=== PATIENT | male | born 1995 | race Caucasian/White ===

== ENCOUNTER 2017-07-15 18:25 | Emergency (ER) | payer BC ==
[2017-07-15 19:35] VITALS: BP 118/58
[2017-07-15] MEDS ORDERED: Acetaminophen TAB* 325 MG PO ONE (21:13)
[2017-07-15] MEDS ORDERED: NS 0.9% 1000 ML* 1,000 ML IV ONE (21:26)
--- NOTE | 2017-07-15 22:05 | UC ---
FLU HPI - HPI Summary HPI Summary: Pt c/o gradual onset of muscle weakness, soreness, fatigue, chills, CALLAHAN, diarrhea and fever/chills X 2 days. Pt began practicing lacrosse at [facility] 3 days ago. Pt reports taking OTC "sports vitamin" 1 week ago. - History of Current Complaint Chief Complaint: UCGeneralIllness Stated Complaint: NAUSEA CHILLS DIZZY ACHY Time Seen by Provider: 07/15/17 21:11 Hx Obtained From: Patient Onset/Duration: Gradual Onset, Lasting Days, Still Present, Worse Since - onset Severity Currently: Moderate Severity Initially: Mild Pain Intensity: 4 Associated Signs & Symptoms: Positive: Fever, Myalgia, Headache, Diarrhea Related Hx: Possible Flu/Infectious Exposure - Allergy/Home Medications Allergies/Adverse Reactions: Allergies Allergy/AdvReac Type Severity Reaction Status Date / Time No Known Allergies Allergy Verified 07/15/17 19:29 Home Medications: Home Medications Amphetamine-Dextroamphetamine [Adderall 15 mg] 1 tab PO BID 07/15/17 [History Confirmed 07/15/17] PMH/Surg Hx/FS Hx/Imm Hx Previously Healthy: Yes - Surgical History Surgical History: Yes Surgery Procedure, Year, and Place: INGUINAL HERNIA REPAIR - Family History Known Family History: Positive: Cardiac Disease - Social History Occupation: Student Lives: Dormitory/Roommates Alcohol Use: Rare Substance Use Type: None Smoking Status (MU): Never Smoked Tobacco Have You Smoked in the Last Year: No - Immunization History Vaccination Up to Date: Yes Review of Systems Constitutional: Fever, Chills, Fatigue Skin: Negative Eyes: Negative ENT: Negative Respiratory: Negative Cardiovascular: Negative Gastrointestinal: Negative Genitourinary: Negative Motor: Negative Neurovascular: Negative Musculoskeletal: Myalgia Neurological: Headache, Weakness Psychological: Negative Is Patient Immunocompromised?: No All Other Systems Reviewed And Are Negative: Yes Physical Exam Triage Information Reviewed: Yes Appearance: Ill-Appearing Vital Signs: Initial Vital Signs Temp 100.7 F 07/15/17 19:31 Pulse 111 07/15/17 19:31 Resp 16 07/15/17 19:31 BP 118/58 07/15/17 19:31 Pulse Ox 100 07/15/17 19:31 Vital Signs Reviewed: Yes Eye Exam: Normal ENT Exam: Normal Dental Exam: Normal Neck exam: Normal Respiratory Exam: Normal Cardiovascular Exam: Normal Abdominal Exam: Normal Abdomen Description: Positive: Nontender Musculoskeletal Exam: Normal Neurological Exam: Normal Psychological Exam: Normal Skin Exam: Normal Flu Course/Dx - Differential Dx/Diagnosis Differential Diagnosis/HQI/PQRI: Influenza, Other - Rhabdomyolisis Provider Diagnoses: Viral syndrome Discharge - Discharge Plan Condition: Stable Disposition: HOME Patient Education Materials: Viral Syndrome (ED) Forms: *Physical Education Release Referrals: Non Staff,Doctor [Primary Care Provider] - If Needed Additional Instructions: Please follow up with your PCP as needed or return clinic. Please discontinue the OTC vitamin you described in todays visit.
== END 2017-07-15 22:32 | disposition home or self-care (01) ==
LOC: UCCORT 18:25
DX: B34.9 Viral infection, unspecified (principal)
CPT/HCPCS: 81003; 87502; 96360; 99202; A9270-GY; G0463

== ENCOUNTER 2017-07-29 18:33 | Emergency (ER) | payer BC ==
[2017-07-29 19:44] VITALS: BP 134/66
[2017-07-29] MEDS ORDERED: Ibuprofen TAB* 400 MG PO ONE (20:12)
[2017-07-29] MEDS ORDERED: Oseltamivir CAP* 75 MG CAP PO ONE (20:12)
--- NOTE | 2017-07-29 20:14 | ED ---
Respiratory - HPI Summary HPI Summary: 21 yr old with fever, chills, cough, runny nose, myalgias. Onset over the past 48 hours. He has had cough productive of sputum. He is a college student with influenza outbreak. - History of Current Complaint Chief Complaint: UCRespiratory Stated Complaint: BODY ACHES, COUGH, SINUS PAIN Time Seen by Provider: 07/29/17 20:04 Pain Intensity: 0 - Allergy/Home Medications Allergies/Adverse Reactions: Allergies Allergy/AdvReac Type Severity Reaction Status Date / Time No Known Allergies Allergy Verified 07/29/17 19:41 PMH/Surg Hx/FS Hx/Imm Hx - Surgical History Surgery Procedure, Year, and Place: INGUINAL HERNIA REPAIR Infectious Disease History: No Infectious Disease History: Denies: Traveled Outside the [place] in Last 30 Days - Family History Known Family History: Positive: Cardiac Disease - Social History Alcohol Use: None Substance Use Type: Reports: None Smoking Status (MU): Never Smoked Tobacco Have You Smoked in the Last Year: No Review of Systems Positive: Fever, Chills Positive: Sore Throat, Nasal Discharge Positive: Cough All Other Systems Reviewed And Are Negative: Yes Physical Exam Triage Information Reviewed: Yes Vital Signs On Initial Exam: Initial Vitals Temp Pulse Resp BP Pulse Ox 101.7 F 115 16 134/66 98 07/29/17 19:41 07/29/17 19:41 07/29/17 19:41 07/29/17 19:41 07/29/17 19:41 Vital Signs Reviewed: Yes Appearance: Positive: Well-Appearing, No Pain Distress Skin: Positive: Warm, Skin Color Reflects Adequate Perfusion Head/Face: Positive: Normal Head/Face Inspection Eyes: Positive: EOMI ENT: Positive: Pharyngeal erythema, Nasal congestion, Nasal drainage, TMs normal Neck: Positive: Supple, Nontender Respiratory/Lung Sounds: Positive: Clear to Auscultation, Breath Sounds Present Cardiovascular: Positive: RRR. Negative: Murmur Abdomen Description: Positive: Nontender Musculoskeletal: Positive: Strength/ROM Intact Neurological: Positive: Sensory/Motor Intact, Alert, Oriented to Person Place, Time, CN Intact II-III Psychiatric: Positive: Normal - [place] Coma Scale Best Eye Response: 4 - Spontaneous Best Motor Response: 6 - Obeys Commands Best Verbal Response: 5 - Oriented Coma Scale Total: 15 Diagnostics - Vital Signs Vital Signs Temp Pulse Resp BP Pulse Ox 07/29/17 19:41 101.7 F 115 16 134/66 98 - Laboratory Lab Results: Lab Results 07/29/17 Range/Units 19:49 Influenza A (Rapid) Positive H (Negative) Influenza B (Rapid) Negative (Negative) Lab Statement: Any lab studies that have been ordered have been reviewed, and results considered in the medical decision making process. Disposition - Course Course Of Treatment: 21 yr old with influenza, dc home on tamiflu - Diagnoses Provider Diagnoses: Influenza Discharge - Discharge Plan Condition: Good Disposition: HOME Prescriptions: Oseltamivir CAP* [Tamiflu CAP*] 75 mg PO BID #10 cap Patient Education Materials: Influenza (ED) Forms: *School Release Referrals: No Primary Care Phys,NOPCP [Primary Care Provider] - [facility] [Outside]
== END 2017-07-29 20:18 | disposition home or self-care (01) ==
LOC: UCCORT 18:33
DX: J11.1 Influenza due to unidentified influenza virus with other respiratory manifestations (principal)
CPT/HCPCS: 87502; 99212; A9270-GY; G0463

== ENCOUNTER 2018-03-23 16:50 | Emergency (ER) | payer BC ==
[2018-03-23] MEDS ORDERED: Ibuprofen TAB* 400 MG PO ONE (18:14)
--- NOTE | 2018-03-23 18:41 | UC ---
Throat Pain/Nasal Gil HPI - HPI Summary HPI Summary: 22 y/o male presents to the urgent care c/o sore throat and CALLAHAN w/ body aches since last night. Pt rook Ibuprofen 400mg PO last night to alleviate symptoms. Pt woke up today around 1500P and has decrease appetite. Pain w/ swallowing is 7 /10 associated w/ fever, CALLAHAN and clear nasal discharge. He has not taken any medication today. Pt denies cough, neck pain, rash, chest pain, abdominal pain, N/V/D. Pt is UTD w/ all vaccines for her age. - History of Current Complaint Chief Complaint: UCGeneralIllness Stated Complaint: SORE THROAT, "FEVERISH" Time Seen by Provider: 03/23/18 18:13 Hx Obtained From: Patient Onset/Duration: Gradual Onset, Lasting Days - 1 day, Worse Since - today Severity: Moderate Pain Intensity: 6 Pain Scale Used: 0-10 Numeric Cough: None Associated Signs & Symptoms: Positive: Dysphagia - Epiglottits Risk Factors Epiglottis Risk Factors: Negative - Allergies/Home Medications Allergies/Adverse Reactions: Allergies Allergy/AdvReac Type Severity Reaction Status Date / Time No Known Allergies Allergy Verified 03/23/18 18:11 Home Medications: Home Medications Dexmethylphenidate HCl [Focalin Xr] 10 mg PO DAILY 03/23/18 [History Confirmed 03/23/18] PMH/Surg Hx/FS Hx/Imm Hx Previously Healthy: Yes - Pt denies PMHX - Surgical History Surgical History: Yes Surgery Procedure, Year, and Place: INGUINAL HERNIA REPAIR - Family History Known Family History: Positive: Cardiac Disease - Social History Occupation: Student Lives: With Family Alcohol Use: Weekly Alcohol Amount: once a week Substance Use Type: None Smoking Status (MU): Never Smoked Tobacco Have You Smoked in the Last Year: No - Immunization History Vaccination Up to Date: Yes Review of Systems Constitutional: Fever Skin: Negative Eyes: Negative ENT: Sore Throat, Nasal Discharge - clear Respiratory: Negative Cardiovascular: Negative Gastrointestinal: Negative Genitourinary: Negative Motor: Negative Neurovascular: Negative Musculoskeletal: Negative Neurological: Negative Psychological: Negative Is Patient Immunocompromised?: No All Other Systems Reviewed And Are Negative: Yes Physical Exam - Summary Physical Exam Summary: VITAL SIGNS: Reviewed. GENERAL: Patient is a well developed and nourished male who is sitting comfortable in the examining table. Patient is not in any acute respiratory distress. HEAD AND FACE: No signs of trauma. No ecchymosis, hematomas or skull depressions. No sinus tenderness. EYES: PERRLA, EOMI x 2, No injected conjunctiva, no nystagmus. No photophobia. EARS: Hearing grossly intact. Ear canals and tympanic membranes are within normal limits. MOUTH: Positive pharynx with erythema, exudates, palatal petechiae. B/L tonsillar enlargement with exudate. Uvula in midline. NECK: Supple, trachea is midline, Positive anterior cervical lymphadenopathy, no JVD, no carotid bruit, no c-spine tenderness, neck with full ROM. No meningeal signs, no Kernig's or brudzinskis signs. CHEST: Symmetric, no tenderness at palpation LUNGS: Clear to auscultation bilaterally. No wheezing or crackles. CVS: Regular rate and rhythm, S1 and S2 present, no murmurs or gallops appreciated. ABDOMEN: Soft, non-tender. No signs of distention. No rebound no guarding, and no masses palpated. Bowel sounds are normal. EXTREMITIES: FROM in all major joints, no edema, no cyanosis or clubbing. NEURO: Alert and oriented x 3. No acute neurological deficits. Speech is normal and follows commands. SKIN: Dry and warm Triage Information Reviewed: Yes Vital Signs: Initial Vital Signs Temp 102 F 03/23/18 18:07 Pulse 111 03/23/18 18:07 Resp 16 03/23/18 18:07 BP 154/59 03/23/18 18:07 Pulse Ox 100 03/23/18 18:07 Throat Pain/Nasal Course/Dx - Course Course Of Treatment: 22 y/o male presents to the urgent care c/o sore throat and CALLAHAN w/ body aches since last night. Pt rook Ibuprofen 400mg PO last night to alleviate symptoms. Pt woke up today around 1500P and has decrease appetite. Pain w/ swallowing is 7/10 associated w/ fever, CALLAHAN and clear nasal discharge. He has not taken any medication today. Pt denies cough, neck pain, rash, chest pain, abdominal pain, N/V/D. Pt is UTD w/ all vaccines for her age. Hx obtained. Pt febrile and pharyngitis on examination. Pt given Ibuprofen PO by the nurse for fever. Pt tolerated well medication and temp decrease to 99.6F.Rapid strep ordered, result: negative. Influenxa A&B: negative. Monospot ordered to r/o mononucleosis. Pt w/ Viral pharyngitis.Pt Rx ibuprofen PO to alleviates symptoms of pain and swelling. Advised on hand washing to avoid spreading. Pt advised to rest, eat well and avoid strenuous exercise. If symptoms do not improve or worsen advised to return to the urgent care or f/u with his PCP for further evaluation and treatment. Pt understood and agreed w/ plan of care. - Differential Dx/Diagnosis Differential Diagnosis/HQI/PQRI: Influenza, Laryngitis, Mononucleosis, Otitis Media, Pharyngitis, Sinusitis, Tonsillitis Provider Diagnoses: 1- Viral pharyngitis. 2- fever Discharge - Sign-Out/Discharge Documenting (check all that apply): Patient Departure - D/c home All imaging exams completed and their final reports reviewed: No Studies - Discharge Plan Condition: Stable Disposition: HOME Prescriptions: Ibuprofen TAB* [Motrin TAB* 800 MG] 800 mg PO Q6H PRN #30 tab PRN Reason: Sore Throat Patient Education Materials: Pharyngitis (ED), Low-Sodium Diet (ED) Forms: *School Release Referrals: [facility] [place] [facility] [Outside] - 2 Days Additional Instructions: 1- Strep was negative, Influenxa A&B were negative. Monospot ordered to r/o mononucleosis you will be notified of results for further management 2-Please take ibuprofen PO q6-8hrs prn as instructed after meals to alleviate pain and swelling. Increase fluid intake, eat well, rest and avoid strenuous exercise 3-If symptoms do not improve or worsen please return to the urgent care or f/u with your PCP in 3 days for further evaluation and treatment. 4-Your BP is elevated today. please decrease salt in your diet, monitor BP and if it continues to be elevated please f/u with your PCP for further management - Billing Disposition and Condition Condition: STABLE Disposition: Home
[2018-03-23 19:19] VITALS: BP 127/62
== END 2018-03-23 19:27 | disposition home or self-care (01) ==
LOC: UCCORT 16:50
DX: J02.8 Acute pharyngitis due to other specified organisms (principal); R50.9 Fever, unspecified
CPT/HCPCS: 36415; 86308; 86664; 86665; 87651; 99212; A9270-GY; G0463

== ENCOUNTER 2018-05-22 14:24 | Emergency (ER) | payer BC ==
[2018-05-22 15:48] VITALS: BP 118/59
--- NOTE | 2018-05-22 16:06 | UC ---
Throat Pain/Nasal Gil HPI - HPI Summary HPI Summary: 22 year old male presents with 3 day history of sore throat and swollen lymph nodes. Denies fever, chills, ear pain, nasal congestion, dysphagia, chest pain, shortness of breath, abdominal pain, nausea or vomiting. - History of Current Complaint Chief Complaint: UCGeneralIllness Stated Complaint: ST Time Seen by Provider: 05/22/18 15:40 Hx Obtained From: Patient Onset/Duration: Gradual Onset, Lasting Days - 3 Severity: Moderate Pain Intensity: 7 Cough: None Associated Signs & Symptoms: Negative: Dysphagia, Drooling, Wheezing, Hoarseness , Sinus Discomfort, Nasal Discharge, Fever, Vomiting - Allergies/Home Medications Allergies/Adverse Reactions: Allergies Allergy/AdvReac Type Severity Reaction Status Date / Time No Known Allergies Allergy Verified 05/22/18 15:48 PMH/Surg Hx/FS Hx/Imm Hx Previously Healthy: Yes Psychological History: Other - ADHD - Surgical History Surgical History: Yes Surgery Procedure, Year, and Place: INGUINAL HERNIA REPAIR - Family History Known Family History: Positive: Cardiac Disease - Social History Occupation: Employed Full-time Lives: With Family Alcohol Use: Weekly Alcohol Amount: once a week Substance Use Type: None Smoking Status (MU): Never Smoked Tobacco Have You Smoked in the Last Year: No - Immunization History Vaccination Up to Date: Yes Review of Systems All Other Systems Reviewed And Are Negative: Yes Constitutional: Negative: Fever, Chills Skin: Negative: Rash Eyes: Negative: Drainage, Eye Redness ENT: Positive: Sore Throat. Negative: Ear Ache, Nasal Discharge, Sinus Congestion Respiratory: Negative: Shortness Of Breath, Cough Cardiovascular: Negative: Palpitations Gastrointestinal: Negative: Abdominal Pain, Vomiting, Nausea Is Patient Immunocompromised?: No Physical Exam - Summary Physical Exam Summary: GENERAL APPEARANCE: Well developed, well nourished, alert and cooperative, and appears to be in no acute distress. EYES: Conjunctiva clear. No discharge. EARS: External auditory canals and tympanic membranes clear, hearing grossly intact. NOSE: No nasal discharge. THROAT: Pharynx erythema. 3+ tonsils with exudate. Uvula midline. Teeth and gingiva in good general condition. NECK: Neck supple, non-tender. Anterior cervical lymphadenopathy present. CARDIAC: Normal S1 and S2. No S3, S4 or murmurs. Rhythm is regular. There is no peripheral edema, cyanosis or pallor. Extremities are warm and well perfused. Capillary refill is less than 2 seconds. LUNGS: Clear to auscultation and percussion without rales, rhonchi, wheezing or diminished breath sounds. ABDOMEN: Positive bowel sounds. Soft, nondistended, nontender. No guarding or rebound. No masses or hepatosplenomegally. SKIN: Skin normal color, texture and turgor with no lesions or eruptions. Triage Information Reviewed: Yes Vital Signs: Initial Vital Signs Temp 97.9 F 05/22/18 15:45 Pulse 62 05/22/18 15:45 Resp 16 05/22/18 15:45 BP 118/59 05/22/18 15:45 Pulse Ox 100 05/22/18 15:45 Vital Signs Reviewed: Yes Diagnostics - Laboratory Diagnostic Studies Completed/Ordered: Rapid strep positive. Throat Pain/Nasal Course/Dx - Course Course Of Treatment: 22 year old male presents with 3 day history of sore throat and swollen lymph nodes. Denies fever, chills, ear pain, nasal congestion , dysphagia, chest pain, shortness of breath, abdominal pain, nausea or vomiting. Exam revealed pharyngeal erythema, 3+ tonsils with exudate, and anterior cervical lymhadenopathy. Rapid strep positive. Will treat with penicillin VK 500 mg 1 tab twice a day for 10 days as well as symptomatic treatment. Warning symptoms reveiwed with patient. Verbalizes understanding and agrees with POC. - Differential Dx/Diagnosis Differential Diagnosis/HQI/PQRI: Mononucleosis, Pharyngitis, Tonsillitis, URI Provider Diagnosis: Streptococcal pharyngitis Discharge - Sign-Out/Discharge Documenting (check all that apply): Patient Departure All imaging exams completed and their final reports reviewed: No Studies - Discharge Plan Condition: Stable Disposition: HOME Prescriptions: Penicillin VK 500 MG TAB(NF) [Penicillin VK 500 mg Tab] 500 mg PO BID #20 tab Patient Education Materials: Strep Throat (ED) Referrals: No Primary Care Phys,NOPCP [Primary Care Provider] - Additional Instructions: Your rapid strep test in the clinic today was positive for strep throat. We will start you on an antibiotic to treat for your infection. Start penicillin VK 500 mg 1 tab twice a day for 10 days. Take with food to avoid upset stomach. Be sure to complete the entire course even if you are feeling better. Drink plenty of fluids to avoid dehydration especially if you are running any fever. Use salt water gargles several times a day. Take over the counter acetaminophen (Tylenol) or ibuprofen (Advil, Motrin) according to directions as needed for pain or fever. You may also use Chloraseptic spray or Cepacol lonzenges according to directions which contain a numbing medication and can provide some temporary relief from your sore throat. Return here or follow up with your primary care provider in 7 days if symptoms persist. Seek immediate medical attention in the emergency room if you have fever greater than 100.5 F despite taking acetaminophen or ibuprofen, are unable to swallow or develop drooling, are unable to open your mouth fully, are unable to eat or drink, have pain that is not relieved with over the counter pain medication, or have any difficulty breathing. - Billing Disposition and Condition Condition: STABLE Disposition: Home - Attestation Statements Provider Attestation: Per institutional requirements, I have reviewed the chart, however, I was not consulted specifically or made aware of this patient by the midlevel provider. I did not personally evaluate, interact with , or disposition this patient.
== END 2018-05-22 16:19 | disposition home or self-care (01) ==
LOC: UCCORT 14:24
DX: J02.0 Streptococcal pharyngitis (principal)
CPT/HCPCS: 87651; 99212; G0463

== ENCOUNTER 2018-08-15 11:35 | Emergency (ER) | payer BC ==
[2018-08-15 12:26] VITALS: BP 119/63
[2018-08-15] MEDS ORDERED: Lidocain 1% EPI 1:100,000 * 30 ML MDV INJ ONE (12:52)
--- NOTE | 2018-08-15 13:50 | UC ---
Laceration HPI - HPI Summary HPI Summary: 22 yo male fell into window about midnight lacerating his right hand and forearm He is right handed tetanus up to date - History Of Current Complaint Chief Complaint: UCLaceration Stated Complaint: LEFT ARM LAC Time Seen by Provider: 08/15/18 12:43 Hx Obtained From: Patient Laceration Location: Hand Mechanism Of Injury: Sharp Trauma Onset/Duration: Sudden Onset Severity: Mild Pain Intensity: 0 Pain Scale Used: 0-10 Numeric Aggravating Factors: Movement Full Body (No Head): 1 - lac 2 - mutiple superficial lacs- none sutured - Allergies/Home Medications Allergies/Adverse Reactions: Allergies Allergy/AdvReac Type Severity Reaction Status Date / Time No Known Allergies Allergy Verified 08/15/18 12:20 PMH/Surg Hx/FS Hx/Imm Hx Previously Healthy: Yes - Surgical History Surgical History: Yes Surgery Procedure, Year, and Place: INGUINAL HERNIA REPAIR - Family History Known Family History: Positive: Cardiac Disease - Social History Alcohol Use: Weekly Alcohol Amount: once a week Substance Use Type: None Smoking Status (MU): Never Smoked Tobacco Have You Smoked in the Last Year: No - Immunization History Most Recent Tetanus Shot: within 5 years Vaccination Up to Date: Yes Review of Systems All Other Systems Reviewed And Are Negative: Yes Constitutional: Positive: Negative Skin: Positive: Negative Eyes: Positive: Negative ENT: Positive: Negative Respiratory: Positive: Negative Cardiovascular: Positive: Negative Gastrointestinal: Positive: Negative Genitourinary: Positive: Negative Motor: Positive: Negative Neurovascular: Positive: Negative Musculoskeletal: Positive: Negative Neurological: Positive: Negative Psychological: Positive: Negative Physical Exam Triage Information Reviewed: Yes Appearance: Well-Appearing, No Pain Distress, Well-Nourished Vital Signs: Initial Vital Signs Temp 97.7 F 08/15/18 12:20 Pulse 83 08/15/18 12:20 Resp 17 08/15/18 12:20 BP 119/63 08/15/18 12:20 Pulse Ox 99 08/15/18 12:20 Vital Signs Reviewed: Yes Eyes: Positive: Conjunctiva Clear ENT: Positive: Hearing grossly normal. Negative: Nasal congestion, Nasal drainage, Trismus, Muffled voice, Hoarse voice Neck: Positive: Supple, Nontender Respiratory: Positive: Lungs clear, Normal breath sounds, No respiratory distress, No accessory muscle use Cardiovascular: Positive: RRR, No Murmur Abdominal Exam: Normal Musculoskeletal: Positive: ROM Intact, No Edema Neurological: Positive: Alert Psychological Exam: Normal Skin Exam: Other - see image Laceration Repair - Laceration Repair 1 Description: Linear Laceration Size After Repair: Length (cm) - 7cm, Width (mm) - 5mm at max, Depth (mm) - 1-2 Debridement: minimal Type Injection: Local Anesthesia Used: 1.0% Lido Additive Used (in ml): Epi Cleansing Completed Via Routine Prep: Yes Irrigation With Pressure Irrigation Device: Yes Closure Material: SteriStrips - starting 1.5 cm and ending 1.5 cm steristripped , Sutures - mid 5 cm of lac sutured Closure Method: Single Layer Suture Of: Skin Suture Type: Nylon - 5-0 #11 Laceration Course/Dx - Diagnosis Provider Diagnosis: Laceration of right forearm Discharge - Sign-Out/Discharge Documenting (check all that apply): Patient Departure All imaging exams completed and their final reports reviewed: No Studies - Discharge Plan Condition: Stable Disposition: HOME Patient Education Materials: Care For Your Stitches (ED) Additional Instructions: You laceration has a slightly increased risk of infection please return for concerns of infection (increased pain/swelling/redness/pus) starting tomorrow gently clean sutured area with soap and water gently dry ...apply thin film of ointment (I like aquaphor healing ointment) try not to get steri strips wet no upper extremity workouts for now the more exercise you do the more tension on the sutures and the worse the result return in about 10 days ...we will access if it looks like the sutures can be removed then after removing the sutures we may need to apply steri strips - Billing Disposition and Condition Condition: STABLE Disposition: Home
== END 2018-08-15 14:10 | disposition home or self-care (01) ==
LOC: UCCORT 11:35
DX: S51.811A Laceration without foreign body of right forearm, initial encounter (principal); W19.XXXA Unspecified fall, initial encounter; Y92.9 Unspecified place or not applicable
CPT/HCPCS: 12002; 99212; G0463

== ENCOUNTER 2018-10-29 19:27 | Emergency (ER) | payer BC ==
[2018-10-29 19:39] VITALS: BP 127/71
--- NOTE | 2018-10-29 20:47 | UC ---
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 no asthma brother w/ asthma. -played basketball onight. felt like he couldnt get end deep inspiration. -ST minimal. no difficylty swallowing - History of Current Complaint Chief Complaint: UCGeneralIllness Stated Complaint: CONGESTION, SINUSES, COUGH Time Seen by Provider: 10/29/18 20:38 Pain Intensity: 4 - Allergies/Home Medications Allergies/Adverse Reactions: Allergies Allergy/AdvReac Type Severity Reaction Status Date / Time No Known Allergies Allergy Verified 10/29/18 19:39 PMH/Surg Hx/FS Hx/Imm Hx Previously Healthy: Yes - Surgical History Surgical History: Yes Surgery Procedure, Year, and Place: INGUINAL HERNIA REPAIR - Family History Known Family History: Positive: Cardiac Disease, Respiratory Disease - brother w / asthma - Social History Alcohol Use: Weekly Alcohol Amount: once a week Substance Use Type: None Smoking Status (MU): Never Smoked Tobacco Have You Smoked in the Last Year: No - Immunization History Most Recent Tetanus Shot: within 5 years Vaccination Up to Date: Yes Review of Systems All Other Systems Reviewed And Are Negative: Yes Constitutional: Positive: Fever, Fatigue Skin: Positive: Negative Eyes: Positive: Negative ENT: Positive: Sore Throat, Ear Ache, Sinus Congestion, Sinus Pain/Tenderness Respiratory: Positive: Cough. Negative: Shortness Of Breath Cardiovascular: Positive: Negative Gastrointestinal: Positive: Negative Genitourinary: Positive: Negative Motor: Positive: Negative Neurovascular: Positive: Negative Musculoskeletal: Positive: Negative Neurological: Positive: Negative Psychological: Positive: Negative Is Patient Immunocompromised?: No Physical Exam Triage Information Reviewed: Yes Appearance: Well-Appearing, No Pain Distress, Well-Nourished Vital Signs: Initial Vital Signs Temp 99.2 F 10/29/18 19:35 Pulse 86 10/29/18 19:35 Resp 16 10/29/18 19:35 BP 127/71 10/29/18 19:35 Pulse Ox 98 10/29/18 19:35 Vital Signs Reviewed: Yes Eye Exam: Normal ENT: Positive: Pharyngeal erythema - + PND, Uvula midline - no swelling. Negative: Tonsillar swelling, Tonsillar exudate, Hoarse voice, Sinus tenderness - maxillary or fontal Neck exam: Normal Neck: Positive: Supple, Nontender, No Lymphadenopathy Respiratory Exam: Normal Respiratory: Positive: Lungs clear, Normal breath sounds, No respiratory distress, No accessory muscle use. Negative: Crackles, Rhonchi, Stridor, Wheezing Cardiovascular Exam: Normal Cardiovascular: Positive: RRR, No Murmur, Pulses Normal Abdominal Exam: Normal Musculoskeletal Exam: Normal Neurological Exam: Normal Psychological Exam: Normal Skin Exam: Normal Throat Pain/Nasal Course/Dx - Course Course Of Treatment: no bactreial infection -viral -no sinu stendenrss. -alb for end inspiration SOB - Differential Dx/Diagnosis Differential Diagnosis/HQI/PQRI: Pharyngitis, Sinusitis, URI Provider Diagnosis: Bronchitis, Upper respiratory infection Discharge - Sign-Out/Discharge Documenting (check all that apply): Patient Departure All imaging exams completed and their final reports reviewed: No Studies - Discharge Plan Condition: Stable Disposition: HOME Prescriptions: Albuterol HFA INHALER* [Ventolin HFA Inhaler*] 2 puff INH Q4H PRN 14 Days #1 mdi PRN Reason: Cough Patient Education Materials: Acute Bronchitis (ED) Referrals: No Primary Care Phys,NOPCP [Primary Care Provider] - Additional Instructions: There is no evidence for any bacterial infection. Increase fluids and rest. You can take tyelnol or advil cold and sinus as needed for symptom relief. Follow up here or [facility] if symptoms increase or persist. Follow up with your pcp at home thereafter. - Billing Disposition and Condition Condition: STABLE Disposition: Home
== END 2018-10-29 20:57 | disposition home or self-care (01) ==
LOC: UCCORT 19:27
DX: J40 Bronchitis, not specified as acute or chronic (principal); J06.9 Acute upper respiratory infection, unspecified
CPT/HCPCS: 99212; G0463